=== PATIENT | female | born 1965 | race Caucasian/White ===

== ENCOUNTER 2021-12-23 22:02 | Inpatient (IN) | payer OTHER ==
[~2021-12-23] VITALS: Ht 175.3 cm; Wt 81.6 kg
--- NOTE | 2021-12-23 22:05 | NUR ---
Dr. Sosa at bedside for MSE.
[2021-12-23] MEDS ORDERED: HYDROMORPHONE 1 MG/1 ML DISP.SYRIN ONE ×2 (22:12→23:20)
[2021-12-23] MEDS ORDERED: ONDANSETRON 4 MG/2 ML VIAL ONE (22:12)
[2021-12-23] MEDS ORDERED: IV NORMAL SALINE 1000 ML BAG IV ONE (22:15)
[2021-12-23] MEDS ORDERED: ONDANSETRON 4 MG/2 ML VIAL IV ONE (22:15)
[2021-12-23] MEDS ORDERED: HYDROMORPHONE 1 MG/1 ML DISP.SYRIN IV ONE ×2 (22:15→23:30)
--- NOTE | 2021-12-23 22:20 | NUR ---
Xray at bedside.
[2021-12-23] MEDS ORDERED: VENL150C58 PO (22:33)
[2021-12-23] MEDS ORDERED: HYDR12.55 PO (22:33)
[2021-12-23] MEDS ORDERED: VENL37.591 PO (22:33)
[2021-12-23 22:40] LABS: HEMATOCRIT 44.6 % (31.2-41.9); MEAN CORPUSCULAR HEMOGLOBIN 29.8 uug (24.7-32.8); PLATELET COUNT (AUTO) 291 K/uL (179-408)
[2021-12-23 22:48] LABS: CREATININE 0.8 mg/dL (0.6-1.3); POTASSIUM 4.2 mmol/L (3.5-5.1)
--- NOTE | 2021-12-23 22:48 | NUR ---
Called Dr. Polanco for ortho consult.
[2021-12-23 22:55] LABS: BILIRUBIN,DIRECT 0.1 mg/dL (0.0-0.2); BILIRUBIN,TOTAL 0.4 mg/dL (0.2-1.0); TOTAL PROTEIN, SERUM 7.7 g/dL (6.4-8.2)
--- NOTE | 2021-12-23 22:56 | NUR ---
Called [facility] to page Mena Holden NP.
[2021-12-23] MEDS ORDERED: IV NS 1000 ML 1,000 ML IV PRN ×2 (23:15→23:30)
[2021-12-23] MEDS ORDERED: MAGNESIUM HYDROXIDE 30 ML LIQUID UDC PO PRN (23:15)
[2021-12-23] MEDS ORDERED: ONDANSETRON 4 MG/2 ML VIAL IV PRN (23:15)
[2021-12-23] MEDS ORDERED: ACETAMINOPHEN 325 MG TABLET PO PRN (23:15)
[2021-12-23] MEDS ORDERED: REMEDY ESSENTIAL ZINC PASTE 113 GM TP PRN ×2 (23:15→23:30)
--- NOTE | 2021-12-23 23:30 | NUR ---
Dr. Sosa on panel call with Mena Holden NP. Patient accepted for admission to [facility], diagnosis: L hip fracture
--- NOTE | 2021-12-24 01:11 | NUR ---
Called [facility] to repage Dr. Polanco for Ortho Consult.
--- NOTE | 2021-12-24 01:50 | NUR ---
Called Dr. Woodson for ortho consult.
[2021-12-24] MEDS ORDERED: HYDROMORPHONE 1 MG/1 ML DISP.SYRIN ONE ×2 (02:21→06:26)
[2021-12-24] MEDS: HYDROMORPHONE 1 MG/1 ML DISP.SYRIN IV PRN ×4 (02:29→15:18)
--- NOTE | 2021-12-24 06:13 | NUR ---
Report given to [facility].
--- NOTE | 2021-12-24 06:18 | NUR ---
Called to repage Dr. Woodson for Ortho consult.
--- NOTE | 2021-12-24 06:19 | NUR ---
Dr. Sosa speaking with Dr. Woodson.
[2021-12-24 07:09] LABS: HEMATOCRIT 40.5 % (31.2-41.9); MEAN CORPUSCULAR HEMOGLOBIN 30.7 uug (24.7-32.8); MEAN CORPUSCULAR VOLUME 87.9 fL (75.5-95.3); PLATELET COUNT (AUTO) 251 K/uL (179-408)
[2021-12-24] MEDS ORDERED: MAGNESIUM HYDROXIDE 30 ML LIQUID UDC PO PRN (07:15)
[2021-12-24] MEDS ORDERED: ONDANSETRON 4 MG/2 ML VIAL IV PRN (07:15)
[2021-12-24] MEDS ORDERED: ACETAMINOPHEN 325 MG TABLET PO PRN (07:15)
[2021-12-24 07:17] LABS: CREATININE 0.6 mg/dL (0.6-1.3); MAGNESIUM 2.1 mg/dL (1.8-2.4); PHOSPHOROUS 4.3 mg/dL (2.5-4.9); POTASSIUM 4.2 mmol/L (3.5-5.1)
--- NOTE | 2021-12-24 07:26 | NUR ---
Pt states wants to be transferred to [facility].
[2021-12-24 08:00] VITALS: BP 146/87
[2021-12-24] MEDS ORDERED: VENLAFAXINE XR 37.5 MG CAP.SR.24H PO SCH ×2 (09:00)
[2021-12-24] MEDS ORDERED: Medication Not On Formulary EA (Hydrochlorothiazide 12.5 MG) PO SCH (09:00)
[2021-12-24] MEDS ORDERED: VENLAFAXINE XR 150 MG CAP.SR.24H PO SCH ×2 (09:00)
--- NOTE | 2021-12-24 09:00 | NUR ---
arrived from er via gurney. alert and oriented x4, denies pain at this time, on 2 lpm oxygen satting 98%. denies sob or chest pain. fc intact yellow urine. no hematuria. states she wants to be transferred to [facility], gave phone numbers for transfer and was forwarded to director of casework services. routine admission done. kept comfortable. needs attended. raúl michaud aware.
--- NOTE | 2021-12-24 11:14 | NUR ---
accidentally pulled out iv while reaching for her phone, reinsert 20g on right hand good back flow.
[2021-12-24 12:00] VITALS: BP 115/48
--- NOTE | 2021-12-24 12:11 | NUR ---
pt gave her ring and earrings to [facility] for safekeeping, noted on belongings list.
[2021-12-24] MEDS ORDERED: VENL37.55 PO (12:38)
[2021-12-24] MEDS ORDERED: HYDR1DIS2 IV (12:38)
[2021-12-24] MEDS ORDERED: VENL150C2 PO (12:38)
--- NOTE | 2021-12-24 15:26 | NUR ---
pt discharged to [facility]. she is agreeable. cm arranged for transport p/up 4pm. report given to josué clement.
[2021-12-24 16:00] VITALS: BP 145/83
--- NOTE | 2021-12-24 16:00 | NUR ---
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 left via [facility]. iv on right hand intact and patent. zamudio catheter intact draining yellow urine, no hematuria noted. on 2 lpm via sc, spo2 94% no sob noted. left in stable condition.
== END 2021-12-24 16:00 | disposition short-term general hospital (02) | DRG 536 ==
LOC: ER 22:19 → MEDSURG3 12-24 06:00 → ER 12-24 07:11
PROVIDERS: ADMIT Nurse Practitioner Acute Care; ATTEND Nurse Practitioner Acute Care
DX: S72.142A Displaced intertrochanteric fracture of left femur, initial encounter for closed fracture (principal); I16.0 Hypertensive urgency; E83.51 Hypocalcemia; I10 Essential (primary) hypertension; D72.829 Elevated white blood cell count, unspecified; W19.XXXA Unspecified fall, initial encounter; Y93.9 Activity, unspecified; Y92.009 Unspecified place in unspecified non-institutional (private) residence as the place of occurrence of the external cause; Z20.822 Contact with and (suspected) exposure to COVID-19
CPT/HCPCS: 36415; 51702; 71045; 73502; 83735; 84100; 85025; 85730; 93005; A4663; C1758; G0378; J1170; J2405; J7040